=== PATIENT | female | born 2000 | race Caucasian/White ===

== ENCOUNTER 2021-12-02 19:48 | Emergency (ER) | payer OTHER, SELFPAY ==
[2021-12-02 19:55] VITALS: BP 108/64; PULSE 87; RESP 18; TEMP 36.6; O2SAT 99
--- NOTE | 2021-12-02 21:16 | ED.GENADULT ---
HPI - General Adult General Chief complaint: Wound/Laceration Stated complaint: Laceration to Left Leg Time Seen by Provider: 12/02/21 20:58 Source: patient History of Present Illness HPI narrative: 20-year-old female presented to emergency department for evaluation of a laceration to her left thigh. Patient was playing softball approximately 3 hours ago when she took a cleat to the left thigh. The patient's employment trainer did dress the wound and placed Steri-Strips. Upon arrival bleeding is resolved. Patient's tetanus is up-to-date. Related Data Allergies Allergy/AdvReac Type Severity Reaction Status Date / Time No Known Allergies Allergy Verified 12/02/21 20:05 Review of Systems Review of Systems: CONSTITUTIONAL: Denies fever, chills, or sweats. EYES: Denies visual changes, redness, or discharge. CARDIOVASCULAR: Denies chest pain, palpitations, or edema. RESPIRATORY: Denies cough or dyspnea. GASTROINTESTINAL: Denies abdominal pain, nausea, vomiting, or diarrhea. GENITOURINARY: Denies dysuria or hematuria. SKIN: Laceration to left anterior thigh. MUSCULOSKELETAL: Denies back pain, joint pain, or myalgia. NEUROLOGIC: Denies headache, numbness, or weakness. All systems reviewed & are unremarkable except as noted in HPI and below Exam Narrative: APPEARANCE: Well appearing, no pain, no distress, well-nourished. HEAD: normocephalic, atraumatic. EYES: PERRLA/EOMI, conjunctivae clear. RESPIRATORY: Airway patent, respirations nonlabored. Clear to auscultation bilaterally, no rales, rhonchi, wheezing. CARDIOVASCULAR: Regular rate and rhythm without murmurs rubs or gallops. ABDOMINAL: Soft, nontender, nondistended, normal bowel sounds MUSCULOSKELETAL: Moves all extremities. Strength/ROM intact, No edema, No calf tenderness. NEURO: Alert. Cranial nerves II through XII intact. Grossly intact SKIN: Superficial laceration to left medial thigh Course Course Emergency Course: Laceration is very superficial. I discussed the options of suturing versus Steri-Strips with the patient and parent and they both prefer Steri-Strips at this time. I think cosmetically they will be very little difference between suturing and Steri-Strips. Laceration was closed with steri strips as detailed in the proc note. Vital Signs Vital signs: Vital Signs Temperature 98 F 12/02/21 19:55 Pulse Rate 87 12/02/21 19:55 Respiratory Rate 18 12/02/21 19:55 Blood Pressure 108/64 12/02/21 19:55 Pulse Oximetry 99 12/02/21 19:55 Temperature 98 F 12/02/21 19:55 Pulse Rate 87 12/02/21 19:55 Respiratory Rate 18 12/02/21 19:55 Blood Pressure 108/64 12/02/21 19:55 Pulse Oximetry 99 12/02/21 19:55 Procedures Laceration Laceration 1: Site: lower extremity Side (If applicable): left Size (cm): 3 Description: linear Depth: simple, single layer Pre-repair: wound explored, irrigated and irrigated extensively ====== Skin Level ====== Skin layer closed with: steri strips Size (cm): 3-0 ====== Subcutaneous Layer ====== ====== Muscle Layer ====== ====== Tendon Layer ====== Medical Decision Making Vital Signs Vital Signs: Vital Signs Temperature 98 F 12/02/21 19:55 Pulse Rate 87 12/02/21 19:55 Respiratory Rate 18 12/02/21 19:55 Blood Pressure 108/64 12/02/21 19:55 Pulse Oximetry 99 12/02/21 19:55 Temperature 98 F 12/02/21 19:55 Pulse Rate 87 12/02/21 19:55 Respiratory Rate 18 12/02/21 19:55 Blood Pressure 108/64 12/02/21 19:55 Pulse Oximetry 99 12/02/21 19:55 Discharge Plan Discharge Clinical Impression: Laceration Patient Disposition: Home, Self-Care Condition: Stable Instructions: Antibiotic Form, Skin Adhesive Care (ED), Steristrips (ED) Additional Instructions: Wound care as directed. Have close follow-up with your primary care physician. If you have any questions or concerns then please call or ret
== END 2021-12-02 21:55 | disposition home or self-care (01) ==
PROVIDERS: Emergency Provider Emergency Medicine
DX: S71.112A Laceration without foreign body, left thigh, initial encounter (principal); W21.31XA Struck by shoe cleats, initial encounter; Y93.64 Activity, baseball
CPT/HCPCS: 99282